=== PATIENT | female | born 1980 | race Two or more races ===

== ENCOUNTER 2024-05-03 17:28 | Emergency (ER) | payer OTHER ==
[~2024-05-03] VITALS: Ht 162.6 cm; Wt 72.0 kg
[2024-05-03] MEDS ORDERED: IBUP-1554 PO (18:53)
[2024-05-03] MEDS ORDERED: ACET-2080 PO (18:53)
[2024-05-03] MEDS ORDERED: BACI28.410 TP (18:53)
[2024-05-03] MEDS ORDERED: AZIT250T9 PO (18:53)
[2024-05-03] MEDS: ACETAMINOPHEN/CODEINE 300-30 MG TABLET PO ONE (19:11)
[2024-05-03] MEDS: IBUPROFEN 600 MG TABLET PO ONE (19:12)
[2024-05-03] MEDS: CEPHALEXIN MONOHYDRATE 500 MG CAPSULE PO ONE (19:12)
[2024-05-03] MEDS: HYDROGEN PEROXIDE 118 ML SOLUTION TP ONE (19:13)
[2024-05-03] MEDS: PERTUSS(ACELL),DIPH,TET/PF 0.5 ML SYRINGE [ADULT] IM. ONE (19:13)
[2024-05-03 19:21] VITALS: BP 135/68; PULSE 71; RESP 16; TEMP 97.3; O2SAT 98
== END 2024-05-03 20:36 | disposition home or self-care (01) ==
LOC: EMS 17:28
DX: S51.852A Open bite of left forearm, initial encounter (principal); W55.01XA Bitten by cat, initial encounter; Y93.89 Activity, other specified; Y92.89 Other specified places as the place of occurrence of the external cause; Y99.8 Other external cause status
CPT/HCPCS: 90471; 90715; 99284